=== PATIENT | male | born 1935 | race Caucasian/White ===

== ENCOUNTER 2019-03-13 10:39 | Outpatient (CLI) | payer OTHER ==
[~2019-03-13] VITALS: Ht 172.7 cm; Wt 91.6 kg
--- NOTE | ~2019-03-13 | P ---
[facility] [place] [address] PROCEDURE REPORT Name: ELIZABETH PIKE Room #: [facility]#: [id number] Admission: 03/13/19 ������������������ Attend Phys: Sourav Urias MD Discharge: ������������������ Date of : 33 Report #: [id number] THIS REPORT FOR: //name// CC: [facility] physician/PCP Sourav Urias DATE OF SERVICE: 03/13/2019 PROCEDURE: Pacemaker implantation. PREOPERATIVE DIAGNOSES: 1. Sick sinus syndrome. 2. Complete heart block. 3. Frequent premature ventricular contractions. HISTORY: The patient is an 83-year-old male with evidence of symptomatic bradycardia on court monitor, which shows periods of sinus bradycardia and sinus arrest as well as complete heart block and frequent PVCs. He has an echo showing normal ejection fraction. He is here for dual chamber pacemaker implantation. ANESTHESIA: The patient underwent MAC anesthesia with no anesthesia related complications. DESCRIPTION OF PROCEDURE: The patient underwent informed consent. We discussed the details of the procedure including the risks, which include but not limited to bleeding, infection, vascular damage, cardiac perforation, pneumothorax. The patient was brought to the EP laboratory in a fasting and unsedated state, prepped and draped in a sterile fashion, received IV antibiotics for antibiotic prophylaxis. He underwent a venogram showing patency of the left axillary vein. Next, lidocaine was injected below the level of left clavicle. Incision was made, pocket was created over the prepectoral fascia and access was obtained twice to the left axillary vein using the extrathoracic approach. Sheaths were positioned using modified Seldinger technique. Next, under fluoroscopy, lead was positioned to the right ventricular mid septum and another lead was placed in the right atrial appendage. Both had adequate pacing and sensing thresholds. The leads were sutured to the prepectoral fascia. Pocket was irrigated with vancomycin. The device was connected, tested and found to be functioning normally. The pocket was closed in 2 layers using 2-0 for the deep layer, 3-0 for the mid layer and surgical glue was placed to the outer skin layer. The patient awoke neurologically and hemodynamically intact. No complications and no significant bleeding. Of note, with atrial pacing, there was evidence of complete heart block. The implanted pacemaker was a [employer], model #[id number], serial [facility] [address] [place] [address] PROCEDURE REPORT Name: ELIZABETH PIKE Room #: [facility]#: [id number] Admission: 03/13/19 ������������������ Attend Phys: Sourav Urias MD Discharge: ������������������ Date of : 33 Report #: [id number]. The atrial lead was [employer], model #8176QM22 cm, serial #[id number] with a P-wave of 2.5 millivolts, pacing impedance of 390 ohms and the pacing threshold 0.75 volts at 0.4 milliseconds. The RV lead was a [employer], model #2088TC, 58 cm, serial #[id number] with an R-wave of 7 millivolts, pacing impedance of 560 ohms and a pacing threshold of 1 volt at 0.4 milliseconds. The device was programmed to the DDDR 60-130 mode. CONCLUSIONS: 1. Successful dual-chamber pacemaker implantation. 2. Satisfactory atrial and ventricular pacing and sensing thresholds. ��������������������������������������������� ���������������������������������������� By: ��������������������������������������������� 1407 [id number] Sourav Urias MD /nt
[2019-03-13] MEDS ORDERED: DEMADEX20 MG PO (11:08)
[2019-03-13] MEDS ORDERED: ALTACE10 MG PO (11:09)
[2019-03-13] MEDS ORDERED: ZANTAC 150MG T150 MG PO (11:09)
[2019-03-13] MEDS ORDERED: ASPIR 8181 M1 PO (11:10)
[2019-03-13] MEDS ORDERED: GLUCOPHAGE XR750 MG PO (11:10)
[2019-03-13] MEDS ORDERED: CADUET 10 MG-11 EACH PO (11:11)
[2019-03-13 11:16] LABS: BASOPHILS 0.9 % (0.0-2.0); HEMATOCRIT 41.1 % (42.0-52.0); HEMOGLOBIN 13.9 gm/dL (14.0-18.0); LYMPHOCYTES 29.1 % (24.0-44.0); MCH 32.2 pg (26.0-34.0); MCHC 33.7 g/dL (28.0-37.0); MCV 95.5 fL (80.0-100.0); MONOCYTES 11.9 % (1.0-8.0); PLATELET COUNT 252 thou/uL (150-400); POLYS 54.1 % (36.0-66.0); RDW 12.7 % (10.5-14.5); WBC 7.5 thou/uL (4.0-11.0)
[2019-03-13 11:18] VITALS: BP 155/86
[2019-03-13 11:24] LABS: CALCIUM 10.1 mg/dL (8.5-10.1); CREATININE 1.6 mg/dL (0.7-1.3); POTASSIUM 4.6 mmol/L (3.5-5.1)
[2019-03-13 11:27] LABS: APTT 25.4 Seconds (24.5-32.8)
[2019-03-13 11:30] LABS: ALBUMIN 4.3 g/dL (3.4-5.0); TOTAL BILIRUBIN 0.6 mg/dL (<0.1-1.0); TOTAL PROTEIN 8.1 g/dL (6.4-8.2)
[2019-03-13] MEDS ORDERED: METOPROLOL SUCC50 MG PO (14:32)
[2019-03-13 15:00] VITALS: BP 145/77
--- NOTE | 2019-03-13 18:41 | NUR ---
83 YO MALE ADMITTED TO 200 FROM PACU. L CLAVICULAR DUAL CHAMBER PACEMAKER IMPLANTED, INCISION WELL APPROXIMATED, NO WARMTH OR REDNESS, IMMOBILIZER IN PLACE, INSTRUCTED PATIENT ON IMPORTANCE OF KEEPING THE IMMOBILIZER ON. VSS, ALERT AND ORIENTED X 3, AT BEDSIDE. WILL CONTINUE TO MONITOR
[2019-03-13 19:13] VITALS: BP 132/77
[2019-03-14 00:06] VITALS: BP 137/69
[2019-03-14 04:16] VITALS: BP 126/70
--- NOTE | 2019-03-14 06:13 | NUR ---
ASSUME CARE 1900. PT/VITALS STABLE. DENIES ANY PAIN. BEDREST WITH BSC PROVOLEGES UNTIL CXR THIS AM. ASSESSMENT CHARTED. PROGRESSING WELL WITH POC. PT IS ADAMANT ABOUT BEDREST SOMETIMES. LEFT CHEST INCISION CDI. LEFT ARM IMMOBILIZER ON. PLAN IS POSSIBLE DISCHARGE TODAY. WILL CONTINUE TO MONITOR AND FOLLOW WITH POC
[2019-03-14 07:10] VITALS: BP 127/76
[2019-03-14 10:21] VITALS: BP 126/70
--- NOTE | 2019-03-14 11:14 | NUR ---
ASSUMED CARE AT SHIFT CHANGE, ALERT AND ORIENTED X4. APACED ON THE MONITOR AND VSS. DISCHARGE AND MEDICATION INSTRUCTIONS GIVEN TO PATIENT AND FAMILY. AND PATIENT WILL BE DISCHARGED.
== END 2019-03-14 11:30 | disposition home or self-care (01) ==
LOC: CATH 10:39 → 2N 15:05 → CATH 03-14 11:30
PROVIDERS: Internal Medicine Cardiovascular Disease
DX: I49.5 Sick sinus syndrome (principal); I44.2 Atrioventricular block, complete; I49.3 Ventricular premature depolarization; I12.9 Hypertensive chronic kidney disease with stage 1 through stage 4 chronic kidney disease, or unspecified chronic kidney disease; E11.22 Type 2 diabetes mellitus with diabetic chronic kidney disease; N18.1 Chronic kidney disease, stage 1; K21.9 Gastro-esophageal reflux disease without esophagitis; Z88.0 Allergy status to penicillin; Z91.040 Latex allergy status; Z96.651 Presence of right artificial knee joint; Z87.891 Personal history of nicotine dependence; Z79.899 Other long term (current) drug therapy; Z79.82 Long term (current) use of aspirin
CPT/HCPCS: 62110; 62900; 70005

== ENCOUNTER → 2019-12-22 | Outpatient (CLI) | payer OTHER ==
[~2019-12-22] MED LIST: ALTACE10 MG PO; ASPIR 8181 M1 PO; CADUET 10 MG-11 EACH PO; DEMADEX20 MG PO; GLUCOPHAGE XR750 MG PO; METOPROLOL SUCC50 MG PO; ZANTAC 150MG T150 MG PO
== END ==
LOC: SJCVC 14:42
DX: Z45.018 Encounter for adjustment and management of other part of cardiac pacemaker (principal); I44.30 Unspecified atrioventricular block; R00.1 Bradycardia, unspecified; I12.9 Hypertensive chronic kidney disease with stage 1 through stage 4 chronic kidney disease, or unspecified chronic kidney disease; E11.22 Type 2 diabetes mellitus with diabetic chronic kidney disease; N18.3 Chronic kidney disease, stage 3 (moderate); Z79.82 Long term (current) use of aspirin; Z79.84 Long term (current) use of oral hypoglycemic drugs; Z79.899 Other long term (current) drug therapy; Z87.891 Personal history of nicotine dependence

== ENCOUNTER → 2020-06-28 | Outpatient (CLI) | payer OTHER | LOC: SJCVCIMAG 08:38 | PROVIDERS: ATTEND Internal Medicine Cardiovascular Disease | DX: R94.31 Abnormal electrocardiogram [ECG] [EKG] (principal); I08.3 Combined rheumatic disorders of mitral, aortic and tricuspid valves; I44.2 Atrioventricular block, complete; I49.3 Ventricular premature depolarization; R00.1 Bradycardia, unspecified; I48.91 Unspecified atrial fibrillation; I48.92 Unspecified atrial flutter; Z95.0 Presence of cardiac pacemaker ==

== ENCOUNTER → 2021-06-28 | Outpatient (CLI) | payer OTHER | LOC: SJCVC 12:48 | PROVIDERS: ATTEND Internal Medicine Cardiovascular Disease | DX: I45.4 Nonspecific intraventricular block (principal); I44.30 Unspecified atrioventricular block; R94.31 Abnormal electrocardiogram [ECG] [EKG]; I49.3 Ventricular premature depolarization; Z95.0 Presence of cardiac pacemaker; E11.9 Type 2 diabetes mellitus without complications; Z88.0 Allergy status to penicillin; I12.9 Hypertensive chronic kidney disease with stage 1 through stage 4 chronic kidney disease, or unspecified chronic kidney disease; E11.22 Type 2 diabetes mellitus with diabetic chronic kidney disease; N18.9 Chronic kidney disease, unspecified; Z91.040 Latex allergy status; Z79.82 Long term (current) use of aspirin; Z79.84 Long term (current) use of oral hypoglycemic drugs; Z79.899 Other long term (current) drug therapy; Z87.891 Personal history of nicotine dependence; Z72.89 Other problems related to lifestyle ==